=== PATIENT | male | born 1950 | race Caucasian/White ===

== ENCOUNTER 2019-10-13 11:05 | Emergency (ER) | payer OTHER, MEDICARE ==
[2019-10-13 11:39] VITALS: BP 127/69; PULSE 77
--- NOTE | 2019-10-13 12:16 | CT ---
DATE OF SERVICE: 10/13/2019 CLINICAL DATA: LLQ pain. Hx of hernia Unenhanced abdomen and pelvic CT: Multislice acquisition through the abdomen and pelvis without IV or oral contrast was performed. No priors. There mild atelectatic changes in both lung bases. The lung bases otherwise clear. No pleural effusion. The heart size is appropriate there moderate coronary artery calcifications. The liver is normal size with homogeneous attenuation. No focal hepatic lesions. The gallbladder appears normal. No calcified gallstones. The spleen appears normal. The pancreas appears normal. The right and left adrenals appear normal. The right and left kidneys appear normal. No nephrocalcinosis or nephrolithiasis. No hydronephrosis or hydroureter. The bladder is partially fluid-filled. It appears normal. There multiple surgical clips in the pelvis adjacent to the bladder. The appendix is not dilated. No evidence of appendicitis. There is a moderate amount of stool present throughout the colon. There is mild diverticulosis. No evidence of diverticulitis. No free air. No free fluid. No dilated loops of bowel. No adenopathy. There is subtle fat stranding involving the root of the mesentery. An infectious or inflammatory process should be considered. There is a ventral hernia lateral to the left rectus abdominis muscle. It does contain fat and a loop of small bowel. No evidence of obstruction associated with it. There is a small fat containing inguinal hernia on the left. There is mild degenerative disc disease in the lower thoracic and lumbar spine at multiple levels. Impression: Left spigelian hernia. See above. Left inguinal hernia. Other findings as discussed above. Dictated and Authenticated by: Momo Givens MD 10/13/2019 12:00 PM Central Time [facility]
--- NOTE | 2019-10-13 14:40 | EDM.PDOC ---
ED HPI GENERAL MEDICAL PROBLEM - General Chief Complaint: General Stated Complaint: LLQ PAIN Time Seen by Provider: 10/13/19 11:15 Source of Information: Reports: Patient History Limitations: Reports: No Limitations - History of Present Illness INITIAL COMMENTS - FREE TEXT/NARRATIVE: This is a 69yo M here for chest congestion Onset: Gradual Duration: Day(s):, Recurring Location: Reports: Abdomen Quality: Reports: Stabbing Severity: Moderate (8/10 pain) Improves with: Reports: None Worsens with: Reports: None Associated Symptoms: Reports: No Other Symptoms Left Lower Abdomen Pain Score (Numeric/FACES): 8 Past Medical History Cardiovascular History: Reports: Heart Murmur, Hypertension Other Cardiovascular History: states slight murmur Respiratory History: Reports: Other (See Below) Other Respiratory History: uses Cpap machine Oncologic (Cancer) History: Reports: Prostate - Past Surgical History GI Surgical History: Reports: Hernia Repair/Other Social & Family History - Family History Family Medical History: Noncontributory GI: Reports: None - Tobacco Use Smoking Status *Q: Former Smoker Used Tobacco, but Quit: Yes Month/Year Tobacco Last Used: Oct 1987 Second Hand Smoke Exposure: No - Caffeine Use Caffeine Use: Reports: Coffee - Recreational Drug Use Recreational Drug Use: No ED ROS GENERAL - Review of Systems Review Of Systems: Comprehensive ROS is negative, except as noted in HPI. ED EXAM, GENERAL - Physical Exam Exam: See Below Exam Limited By: No Limitations General Appearance: Alert, WD/WN, No Apparent Distress Eye Exam: Bilateral Eye: EOMI, PERRL Ears: Normal External Exam Nose: Normal Inspection Throat/Mouth: Normal Inspection Respiratory/Chest: No Respiratory Distress Cardiovascular: Normal Peripheral Pulses GI/Abdominal: Soft, Non-Tender, Hernia Back Exam: Normal Inspection Extremities: Normal Inspection Course - Vital Signs Last Recorded V/S: Last Vital Signs Temp 36.8 C 10/13/19 11:38 Pulse 77 10/13/19 11:38 Resp 16 10/13/19 11:38 BP 127/69 10/13/19 11:38 Pulse Ox 98 10/13/19 11:38 - Orders/Labs/Meds Labs: Laboratory Tests 10/13/19 10/13/19 10/13/19 Range/Units 11:25 11:25 11:25 WBC 5.5 D (4.0-11.0) K/uL RBC 4.41 L (4.50-6.50) M/uL Hgb 14.1 (13.0-18.0) g/dL Hct 39.2 L (40.0-54.0) % MCV 89 (76-96) fL MCH 32.0 (27.0-32.0) pg MCHC 36.0 H (31.0-35.0) g/dL RDW 12.3 (11.0-16.0) % Plt Count 231 (150-400) K/uL MPV 9.7 (6.0-10.0) fL Neut % (Auto) 43.1 L (45.0-70.0) % Lymph % (Auto) 42.0 H (20.0-40.0) % [place] % (Auto) 11.8 H (3.0-10.0) % Eos % (Auto) 2.7 (1.0-5.0) % Baso % (Auto) 0.4 (0.0-0.5) % Neut # (Auto) 2.38 (2.00-7.50) K/uL Lymph # (Auto) 2.32 (1.50-4.00) K/uL [place] # (Auto) 0.65 (0.20-0.80) K/uL Eos # (Auto) 0.15 (0.04-0.40) K/uL Baso # (Auto) 0.02 (0.02-0.10) K/uL VBG pH 7.42 H (7.31-7.41) Sodium 138 (136-145) mmol/L Potassium 3.4 L (3.5-5.1) mmol/L Chloride 101 (98-107) mmol/L Carbon Dioxide 28.7 (21.0-32.0) mmol/L Anion Gap 11.7 (5.0-15.0) mmol/L BUN 13 (8-26) mg/dL Creatinine 0.72 (0.70-1.30) mg/dL Est Cr Clr Drug Dosing 115.75 mL/min Estimated GFR (MDRD) > 60 (>60) MLS/MIN BUN/Creatinine Ratio 18.1 (6-25) Glucose 89 (74-100) mg/dL Lactic Acid (0.4-2.0) mmol/L Calcium 9.4 (8.5-10.1) mg/dL Total Bilirubin 1.2 H (0.0-1.0) mg/dL AST 14 L (15-37) U/L ALT 31 (12-78) U/L Alkaline Phosphatase 76 (46-116) U/L Troponin I < 0.017 (0.000-0.060) ng/mL Total Protein 8.3 H (6.4-8.2) g/dL Albumin 4.0 (3.4-5.0) g/dL Globulin 4.3 H (2.2-4.2) g/dL Albumin/Globulin Ratio 0.9 (0.8-2.0) TSH, Ultra Sensitive 2.219 (0.358-3.740) uIU/mL 10/13/19 Range/Units 11:25 WBC (4.0-11.0) K/uL RBC (4.50-6.50) M/uL Hgb (13.0-18.0) g/dL Hct (40.0-54.0) % MCV (76-96) fL MCH (27.0-32.0) pg MCHC (31.0-35.0) g/dL RDW (11.0-16.0) % Plt Count (150-400) K/uL MPV (6.0-10.0) fL Neut % (Auto) (45.0-70.0) % Lymph % (Auto) (20.0-40.0) % [place] % (Auto) (3.0-10.0) % Eos % (Auto) (1.0-5.0) % Baso % (Auto) (0.0-0.5) % Neut # (Auto) (2.00-7.50) K/uL Lymph # (Auto) (1.50-4.00) K/uL [place] # (Auto) (0.20-0.80) K/uL Eos # (Auto) (0.04-0.40) K/uL Baso # (Auto) (0.02-0.10) K/uL VBG pH (7.31-7.41) Sodium (136-145) mmol/L Potassium (3.5-5.1) mmol/L Chloride (98-107) mmol/L Carbon Dioxide (21.0-32.0) mmol/L Anion Gap (5.0-15.0) mmol/L BUN (8-26) mg/dL Creatinine (0.70-1.30) mg/dL Est Cr Clr Drug Dosing mL/min Estimated GFR (MDRD) (>60) MLS/MIN BUN/Creatinine Ratio (6-25) Glucose (74-100) mg/dL Lactic Acid 0.8 (0.4-2.0) mmol/L Calcium (8.5-10.1) mg/dL Total Bilirubin (0.0-1.0) mg/dL AST (15-37) U/L ALT (12-78) U/L Alkaline Phosphatase (46-116) U/L Troponin I (0.000-0.060) ng/mL Total Protein (6.4-8.2) g/dL Albumin (3.4-5.0) g/dL Globulin (2.2-4.2) g/dL Albumin/Globulin Ratio (0.8-2.0) TSH, Ultra Sensitive (0.358-3.740) uIU/mL Departure - Departure Time of Disposition: 12:45 Disposition: Home, Self-Care 01 Condition: Fair Clinical Impression: Spigelian hernia - Discharge Information Instructions: Hernia, Adult Referrals: PCP,None [Primary Care Provider] - Forms: ED Department Discharge Care Plan Goals: [facility] days return to hospital or clinic if pain returns or with any questions or concerns. Sepsis Event Note - Evaluation Sepsis Screening Result: No Definite Risk - Focused Exam Vital Signs: Vital Signs Temp Pulse Resp BP Pulse Ox 10/13/19 11:38 36.8 C 77 16 127/69 98 Date Exam was Performed: 10/13/19 Time Exam was Performed: 14:43 - Problem List & Annotations (1) Spigelian hernia SNOMED Code(s): 496149541 Code(s): K43.9 - VENTRAL HERNIA WITHOUT OBSTRUCTION OR GANGRENE Status: Acute Priority: High - Problem List Review Problem List Initiated/Reviewed/Updated: Yes - Assessment/Plan Plan: Counseled on hernia and possible progression to bowel obstruction. Discussed surgery consult and patient would [facility] to obtaining [facility]. He states he will notify us for referral once he discussed plan of care with the [facility] report given to patient and discussed close f/u and rtc as scheduled and return to ER for worsening symptoms.
== END 2019-10-13 12:20 | disposition home or self-care (01) ==
LOC: LB.ED 11:05
DX: K43.9 Ventral hernia without obstruction or gangrene (principal); I10 Essential (primary) hypertension; Z87.891 Personal history of nicotine dependence
CPT/HCPCS: 36415; 74176; 80053; 82800; 83605; 84443; 84484; 85025; 99283; 99284-25